=== PATIENT | female | born 1965 | race Caucasian/White ===

== ENCOUNTER → 2022-05-12 16:08 | Outpatient (CLI) | payer BC, SELFPAY ==
--- NOTE | ~2022-05-12 | US_ITS ---
US thyroid INDICATION: Nontoxic thyroid nodule. Previous benign biopsy in 2012. TECHNIQUE: Real-time sonographic images of the thyroid gland were obtained. COMPARISON: Ultrasound dated 08/13/2011 FINDINGS: The right thyroid lobe measures 5 x 2.9 x 2.2 cm. The left thyroid lobe measures 5.3 x 1.8 x 1.7 cm. Thyroid gland is diffusely heterogeneous. There is a solid heterogeneous predominantly hyp oechoic mass in the right lobe which is wider than tall, ill-defined margins and no significant inter nal echogenic foci measuring 2.7 x 2 x 2.1 cm compared with 1.7 x 1.5 x 1.8 cm on prior examination, TR 4. In the left lobe there is a 3 mm hyperechoic mass, likely benign. There is a 4 mm cyst in the l eft lobe. IMPRESSION: 1. Enlargement of solid hypoechoic right thyroid mass compared with prior study measuring up to 2.7 cm. Although this is previously been biopsy proven benign follow-up ultrasound-guided repeat biopsy r ecommended. Reviewed, dictated and finalized at location B. IMPRESSION: 1. Enlargement of solid hypoechoic right thyroid mass compared with prior stud y measuring up to 2.7 cm. Although this is previously been biopsy proven benign follow-up ultrasound-guided repeat biopsy recommended.
== END ==
PROVIDERS: PCP Family Medicine; Visit Provider Family Medicine
DX: E04.1 Nontoxic single thyroid nodule (principal)
CPT/HCPCS: 76536

== ENCOUNTER 2022-05-23 12:20 | Outpatient (CLI) | payer BC, SELFPAY ==
--- NOTE | ~2022-05-23 | US_ITS ---
EXAMINATION: US FNA w image guidance DATE: 05/23/2022 13:35 INDICATION: Nontoxic single thyroid nodule TECHNIQUE: A time-out was performed to verify the patient's name, date of , and procedure to be performed . The procedure and its benefits and risks were discussed with the patient. Risks specifically discus sed included bleeding and infection. The patient understood the risks and agreed to proceed. The neck was prepped and draped in the usual sterile manner. 3 mL 1% lidocaine was used for local anesthesia . 6 passes were made with a 25G needle into the lesion. Appropriate needle location was documented with continuous sonographic guidance. A sterile bandage was applied. There were no immediate compli cations. FINDINGS: Grayscale ultrasound images demonstrate biopsy needles advanced into a 3.1 cm TI RADS 4 solid nodules in the right thyroid lobe. IMPRESSION: 1. Successful ultrasound-guided fine needle aspiration of the previously noted enlarging 3.1 cm TI R ADS 4 right thyroid nodule. Reviewed, dictated and finalized at location A. IMPRESSION: 1. Successful ultrasound-guided fine needle aspiration of the previously noted enlarging 3.1 cm TI RADS 4 right thyroid nodule.
== END 2022-05-23 12:21 | disposition home or self-care (01) ==
PROVIDERS: PCP Family Medicine; Visit Provider Nurse Practitioner Gerontology
DX: E04.1 Nontoxic single thyroid nodule (principal)
CPT/HCPCS: 10005; 88173; 88305

== ENCOUNTER 2024-01-04 15:25 | Outpatient (CLI) | payer BC, SELFPAY ==
--- NOTE | ~2024-01-04 | US_ITS ---
EXAMINATION: US thyroid DATE: 01/04/2024 15:44 INDICATION: Nontoxic single thyroid nodule TECHNIQUE: Multiple ultrasound images of the thyroid were obtained. COMPARISON: 05/12/2022 and 05/23/2022 FINDINGS: The right thyroid lobe measures 5.5 x 2.7 x 3.1 cm. The left thyroid lobe measures 4.9 x 1.3 x 1.9 c m. Interval increase in size of a previously 3.1 x 2.1 x 2.0 cm, currently 3.5 x 2.3 x 2.6 cm solid hypoechoic mass in the right thyroid lobe which is wider than tall with smooth margins and without ec hogenic foci (TI-RADS 4, moderately suspicious , FNA if >=1.5 cm, annual followup is >=1 cm) with sally or biopsy pathology read as consistent with benign follicular nodule . 1.4 cm solid isoechoic wider than tall nodule with ill-defined margins and without echogenic foci at the deep left thyroid lobe (T I-RADS 3, mildly suspicious , FNA if >=2.5 cm, annual followup is >=1.5 cm). There are a few addition al 5 mm or smaller nodules in the left thyroid lobe. IMPRESSION: 1. Multinodular goiter with interval increase in size of the largest now 3.5 cm right thyroid nodule with prior biopsy read as benign but less than optimal due to scant cellularity . Would consider nichole iopsy given the interval increase in size. Reviewed, dictated and finalized at location A. IMPRESSION: 1. Multinodular goiter with interval increase in size of the largest now 3.5 cm right thyroid nodule with prior biopsy read as benign but less than optimal d ue to scant cellularity . Would consider rebiopsy given the interval increase i n size.
== END 2024-01-04 15:26 ==
LOC: MICIMG 15:26
PROVIDERS: PCP Family Medicine; Visit Provider Family Medicine
DX: E04.2 Nontoxic multinodular goiter (principal)
CPT/HCPCS: 76536

== ENCOUNTER 2024-02-26 12:45 | Outpatient (CLI) | payer BC, SELFPAY ==
--- NOTE | ~2024-02-26 | US_ITS ---
EXAMINATION: US FNA w image guidance DATE: 02/26/2024 14:01 INDICATION: Right thyroid mass TECHNIQUE: A time-out was performed to verify the patient's name, date of , and procedure to be performed . The procedure and its benefits and risks were discussed with the patient. Risks specifically discus sed included bleeding and infection. The patient understood the risks and agreed to proceed. The neck was prepped and draped in the usual sterile manner. 3 mL 1% lidocaine was used for local anesthesia . 7 passes were made with a 25G needle into the lesion. Appropriate needle location was documented with continuous sonographic guidance. A sterile bandage was applied. There were no immediate compli cations. FINDINGS: Grayscale ultrasound images demonstrate biopsy needles advanced into a 3.2 cm right thyroid nodule.. IMPRESSION: 1. Successful ultrasound-guided fine needle aspiration of a 3.2 cm right thyroid nodule. Reviewed, dictated and finalized at location A. IMPRESSION: 1. Successful ultrasound-guided fine needle aspiration of a 3.2 cm right thyro id nodule.
== END 2024-02-26 12:46 | disposition home or self-care (01) ==
PROVIDERS: PCP Family Medicine; Visit Provider Physician Assistant
DX: E04.1 Nontoxic single thyroid nodule (principal)
CPT/HCPCS: 10005; 88172; 88173; 88305

== ENCOUNTER 2024-04-22 15:52 | Outpatient (CLI) | payer BC, SELFPAY ==
--- NOTE | ~2024-04-22 | MM_ITS ---
EXAMINATION: MM screening abhishek BI w mala HISTORY: Screening TECHNIQUE: Craniocaudal and mediolateral oblique 3-D tomosynthesis images were obtained and synthetic 2-D images were generated. CAD analysis was submitted and interpreted. COMPARISON: No prior mammogram is available for comparison at this institution. BREAST PARENCHYMAL COMPOSITION: Dense: The breasts are extremely dense, which lowers the sensitivity of mammography. FINDINGS: There is no mammographic evidence for malignancy in the right breast. There are asymmetries in the upper outer quadrant of the left breast posteriorly. IMPRESSION: 1. Left breast asymmetries. 2. Additional mammographic views and possible breast ultrasound are recommended. BI-RADS Category 0: Incomplete: Needs additional imaging evaluation. Reviewed, dictated and finalized at location B. IMPRESSION: 1. Left breast asymmetries. 2. Additional mammographic views and possible breast ultrasound are recommended . BI-RADS Category 0: Incomplete: Needs additional imaging evaluation.
== END 2024-04-22 15:53 | disposition home or self-care (01) ==
LOC: MICIMG 15:55
PROVIDERS: PCP Family Medicine; Visit Provider Physician Assistant
DX: Z12.31 Encounter for screening mammogram for malignant neoplasm of breast (principal)
CPT/HCPCS: 77063; 77067